=== PATIENT | female | born 1980 | race Caucasian/White ===

== ENCOUNTER → 2024-05-10 11:09 | Outpatient (REF) | payer BC, SELFPAY | LOC: HWWDC 11:09 | PROVIDERS: ATTENDING PHYSICIAN Internal Medicine | DX: Z12.31 Encounter for screening mammogram for malignant neoplasm of breast (principal) | CPT/HCPCS: 77063; 77067 ==

== ENCOUNTER → 2025-05-28 17:52 | Outpatient (REF) | payer BC, SELFPAY | LOC: WDC 17:52 | PROVIDERS: ATTENDING PHYSICIAN Obstetrics & Gynecology; FAMILY PHYSICIAN Internal Medicine | DX: Z12.31 Encounter for screening mammogram for malignant neoplasm of breast (principal) | CPT/HCPCS: 77063; 77067 ==

== ENCOUNTER → 2025-08-13 07:18 | Outpatient (REF) | payer BC, SELFPAY | LOC: HWRCS 07:18 | PROVIDERS: ATTENDING PHYSICIAN Internal Medicine | DX: Z87.898 Personal history of other specified conditions (principal) | CPT/HCPCS: 93306 ==

== ENCOUNTER 2025-10-10 00:02 | Emergency (ER) | payer BC, SELFPAY ==
[2025-10-10 00:09] VITALS: BP 118/71
[2025-10-10 01:07] LABS: COVID-19 Antigen Negative (Negative)
[2025-10-10 01:30] VITALS: BMI 29.0
[2025-10-10 01:32] VITALS: BP 106/57
[2025-10-10] MEDS: NSS 1000 IV (01:50)
[2025-10-10] MEDS: TORADOL 30 MG IV (01:51)
--- NOTE | 2025-10-10 01:51 | ED.GENMED ---
History of Present Illness
General
Chief Complaint: Cold/Flu/URI Symptoms
Source: patient
Exam Limitations: none
Time Seen by Provider: 10/10/25 00:49
Nursing documentation reviewed up to this point in time: agreed with
History of Present Illness
History of Present Illness:
see MDM
Past History
Past History
ED Past Medical History: Other (Mastitis)
ED Past Surgical History: None
Social History
Tobacco: Non-smoker
Employment: Employed
Phy Exam
Physical Exam
Physical Exam:
see MDM
Sepsis
Sepsis Screening
Sepsis Assessment: Sepsis Ruled Out
Sepsis Screen
Sepsis Screen: Sepsis Ruled Out
Date: 10/10/25
Time: 07:01
Course
Orders/Labs/Results
Orders:
Orders
10/10/25 00:18
COVID-19 Antigen Urgent
Source: Nasal Swab
Influenza A+B Rapid Molecular Urgent
JOSHUA Source: Nasal Swab
Specimen Description:
10/10/25 01:16
0.9% Sodium Chloride 1000 ml [Nss] 1,000 ml IV BOLUS
Acetaminophen [Tylenol] 1,000 mg PO NOW STA
Ketorolac [Toradol] 30 mg IV NOW STA
10/10/25 01:49
Complete Blood Count/With Diff Urgent
Comprehensive Metabolic Panel Urgent
HCG, Serum Qualitative Screen Urgent
Comment: ADD ON
Monotest Urgent
Rapid Strep Group A Urgent
JOSHUA Source: Throat/Pharynx
Specimen Description:
Date Specimen was Collected: 10/10/25
Time Specimen was Collected: 01:17
10/10/25 01:54
Ondansetron Injectable [Zofran] 4 mg IV NOW STA
10/10/25 01:57
EKG [Electrocardiogram (*1)] Urgent
Reason for Study: Fatigue / Weakness
EKG- Treatment ONCE
10/10/25 02:39
Add On- LAB Urgent
Tests Added?: hcg serum qual
10/10/25 03:01
Lactic Acid Urgent
Parvo Virus (B19) IgG & IgM [S] Urgent
10/10/25 03:55
Diphenhydramine [Benadryl] 25 mg PO NOW STA
Abnormal Lab Results
10/10/25
01:49
MPV 10.7 H fL
(7.4-10.4)
Absolute Neuts (auto) 7.0 H 10^3/uL
(1.4-6.5)
Absolute Lymphs (auto) 0.4 L 10^3/uL
(1.2-3.4)
Neutrophils % 90.2 H %
(42.2-75.2)
Lymphocytes % 5.5 L %
(20.5-51.1)
Carbon Dioxide 19 L mmol/L
(22-30)
10/10/25 01:49
10/10/25 01:49
Vital Signs
Initial and Last Documented VS:
Initial Vital Signs
Temp Pulse Resp BP Pulse Ox
37.4 C 78 20 118/71 99
10/10/25 00:09 10/10/25 00:09 10/10/25 00:09 10/10/25 00:09 10/10/25 00:09
Last Documented Vital Signs
Temp Pulse Resp BP Pulse Ox
37.4 C 66 18 108/56 97
10/10/25 00:09 10/10/25 04:01 10/10/25 04:01 10/10/25 03:00 10/10/25 04:00
MDM/Problems Addressed
Differential Diagnosis Includes:
see MDM
MDM/Problems Addressed:
Note:
CHIEF COMPLAINT(S)
Headache, chills, rash, and feeling unwell.
HISTORY OF PRESENT ILLNESS
The [id number] y/o F, presented with a headache that began yesterday, accompanied by chills, which she initially attributed to her menstrual cycle. Today, the headache persisted while at work, and the patient took medication 9 am motrin, which
helped. 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 By evening, she noticed pain and swelling where her watch typically rests on her wrists, followed by a rash that is not itchy, but just warm feeling. Later, while showering, she
developed pronounced chills, but she denied any significant redness or earache and reported only minimal redness. The headache slightly improved by the time of presentation. She also noted tiredness, possibly related to tending to her children.
no sore throat, cough, vomiting, diarrhea, recent travel, recent abx, urinary sypmtoms
no h/o lupus
daughter was sick with something last week, waxing and waning fever, resolved
didn't have slapped cheeks
no new meds
PAST MEDICAL AND SURGICAL HISTORY
The patient reported having mononucleosis previously.
SOCIAL DETERMINANTS AFFECTING HEALTH
The patient mentioned the additional stress related to caring for two young children, which may contribute to her overall feeling of fatigue.
REVIEW OF SYSTEMS
- General: Fatigue
- Head: Headache, but no significant redness
- Skin: Rash, minimal redness noticed at the site of watch placement
- Ear, Nose, and Throat: No earache reported
PHYSICAL EXAM
- Nursing notes reviewed and vital signs reviewed.
GENERAL: Alert , in no apparent distress
EYE: pupils equal and reactive
NECK: Supple, mild swollen nontender GISSEL tonsillar
ENT: o/p clr, mmm.
no cracked lips
tongue normal
no lesions
CARDIAC: Regular rate and rhythm .
LUNGS: Clear breath sounds bilaterally, no acute respiratory distress, no wheezes/rales/rhonchi
ABDOMEN: Soft, without focal tenderness, no r/g, no cvat, normal bowel sounds
NEUROLOGICAL: Alert and oriented, no focal neuro deficits
SKIN: Warm and dry, skin intact.
coalescent erythema, [place] cheeks, neck, some on thighs, back, palms/wrists, feet
pastias lines wrists
MUSCULOSKELETAL: mild swelling of her hands, well perfused. neg nate's sign
PSYCH: Normal and appropriate interaction.
PLAN
1. Order basic blood work to check for potential causes, including testing for mononucleosis.
2. Swabbing for group A Streptococcus and testing for flu and cold will be conducted.
3. Consider sending a test for Parvovirus B19 if other tests are inconclusive.
4. Administer ibuprofen to manage symptoms and improve comfort.
DIFFERENTIAL DIAGNOSIS
The Differential Diagnosis includes, in no particular order and is not limited to:
1. Influenza
2. Mononucleosis
3. Parvovirus B19 infection
4. Viral Pharyngitis
5. Group A Streptococcal infection
6. Allergic reaction
7. Viral Exanthem
8. Upper Respiratory Infection
9. Sinusitis
10. Tension Headache
44 y/o F
h/o hypothyroidism
here iwth redness to hands/feet, face most pronounced tonight
she had headahce today but no fever until this evening
temp 101 in her ear
no meds taken for the tepm but took motrin today during the day (9 am) for headache
she noiced her hands/wrists felt warm and swollen/stiff and then noticed the redness
now while being here her face is pretty red
her daughter had waxing and waning febrile illness last week which resolved
pt denies neck stiffness, worst headache, sore throat, cold symptoms, vomiting
no recent abx
no h/o allergy to NSAIDS
no travel
on exam she has slapped cheeks and some mild erythema on her trunk but mostly wrists/feet some on her legs
no bullae, no blisters, no sloughing
no MM involvement
R eye looked a little injected but she was crying she said and this is likely cause and not conjunctivitis
she has borderline temp 99
no neck stiffness
no signficinatn headache
d/w ed attending dr. watt
who agreed with plan that if labs reassuring ok to d/c home likely viral
pt's wbc normal 7.7
mono neg
lactic normal
covid/flustrep neg
after IV placement pt became pale, nauseated, sarai and hypotensive
likely vasovagal
ekg sinus sarai
she recovered in trendelenburg
redness retuend to face but is less
d/c home
*Pulse Oximetry
SaO2: 98
Patient hypoxic: no (97)
*Critical Care Note
Total Time (30-74mins, 75-104mins- exclusive of procedures): Not Applicable
ED Attending Note
-
Portions of this chart may have been created with voice recognition software.� Occasional wrong word or��sound alike� substitutions may have occurred due to the inherent limitations of voice recognition software.
Discharge Plan
Departure
Patient Disposition: Home (Routine Discharge)
Date of Disposition: 10/10/25
Time of Disposition: 03:55
Patient with high blood pressure during this ER visit?: No
Condition: Fair
Discharge Problem:
Fever, Viral exanthem
Instructions: Viral Syndrome (DC)
Prescriptions:
No Action
Vitamins Tablet
1 tab PO DAILY
Synthroid Tab
137 mcg PO DAILY AT 0700
Calcium
1 tab PO DAILY
Vitamin D
1 tab PO DAILY
ibuprofen 600 MG tablet
600 mg PO Q4HPRN PRN (Reason: cramps) Qty: 90 0RF
hydromorphone 2 MG tablet
2 mg PO Q4HPRN PRN (Reason: severe pain) Qty: 6 0RF
Referrals:
Kisha Saucedo MD [Family Provider, Internal Medicine]
Stand Alone Forms: Return to Work
Activity Restrictions/Additional Instructions:
YOUR RASH LOOKS LIKE SOMETHING CALLED 5THS DISEAE WHICH IS A VIRUS, SELF LIMITING
I DID TEST YOU FOR IT, IT WILL TAKE SOME DAYS TO RESULT
IN THE MEANTIME, YOUR BLOOD WORK WAS OTHERWISE REASSURING
YOU SHOULD STAY HOME UNTIL FEVER FREE FOR 24 HOURS
TAKE TYLENOL FOR YORU FEVER
YOU CAN USE BENADRYL FOR ITCHING/IRRITATION
RETURN FOR: BLISTERING RASH, WORSENING PAIN, MOUTH LESIONS/GENITAL LESIONS, VOMITING, NECK STIFFNESS, SEVERE HEADACHE, ETC
OTHERWISE SEE YOUR DOCTOR NEXT WEEK
Interventions
Interventions:
*General Assessment Last Done: 10/10/25 01:30
*Neglect/Abuse Screening Last Done: 10/10/25 01:30
*ED COVID-19 Vaccine History Last Done: 10/10/25 01:30
*ED Influenza Vaccine History Last Done: 10/10/25 01:30
[facility] Fall Risk Assessment Tool Last Done: 10/10/25 01:30
*Risk Screen - Suicide (C-SSRS) Last Done: 10/10/25 00:09
*Nursing Disposition Last Done: 10/10/25 04:01
ED- Pulmonary Assessment Last Done: 10/10/25 01:30
Discharge Date and Time
Discharge Date/Time: 10/10/25 04:16
Print Language: [id number]
[2025-10-10 01:55] VITALS: BP 91/53
[2025-10-10 02:00] VITALS: BP 110/62
[2025-10-10] MEDS: ZOFRAN 4 MG IV (02:05)
[2025-10-10 02:19] LABS: Hematocrit 37.0 % (37.0-47.0); Hemoglobin 13.0 g/dL (12.0-16.0); Mean Corp Hgb Conc. 35.1 g/dL (33.0-37.0); Mean Corpuscular Volume 83.7 fL (81.0-99.0); Nucleated Red Blood Cells % 0 %; Platelet Count 203 10^3/uL (130-400); Red Cell Dist. Width 12.3 % (11.5-14.5)
[2025-10-10 02:27] LABS: ALT (SGPT) 19 U/L (0-35); AST (SGOT) 21 U/L (14-36); Albumin 4.2 g/dl (3.5-5.0); Alkaline Phosphatase 55 U/L (38-126); Blood Urea Nitrogen 15 mg/dl (7-17); Calcium 9.0 mg/dl (8.4-10.2); Carbon Dioxide 19 mmol/L (22-30); Chloride 106 mmol/L (98-107); Estimated Creatinine Clearance 114 ml/min; Glucose 95 mg/dl (70-99); Potassium 3.5 mmol/L (3.5-5.1); Sodium 138 mmol/L (135-145); Total Protein 7.0 g/dl (6.3-8.2); eGFR > 60.00
[2025-10-10 03:00] VITALS: BP 108/56
[2025-10-10 03:39] LABS: HCG, Serum Qualitative Screen Negative
[2025-10-10] MEDS: BENADRYL 25 MG PO (04:03)
[2025-10-13 03:57] LABS: Parvo B19 Ab, IgM 0.47 IV (<=0.89); Parvo Virus B19 Ab, IgG 7.96 IV (<=0.90)
== END 2025-10-10 04:16 | disposition home or self-care (01) ==
LOC: EMR 00:02
PROVIDERS: Physician Assistant; Student in an Organized Health Care Education/Training Program; EMERGENCY PHYSICIAN Emergency Medicine; FAMILY PHYSICIAN Internal Medicine
DX: R50.9 Fever, unspecified (principal); B09 Unspecified viral infection characterized by skin and mucous membrane lesions
CPT/HCPCS: 99283; 96374; 96375; 96361; 80053; 83605; 84703; 85025; 86308; 86747; 87070; 87502; 87811; 87880; 93005